=== PATIENT | female | born 1980 | race Caucasian/White ===

== ENCOUNTER 2017-04-09 17:16 | Emergency (ER) | payer SELFPAY ==
[~2017-04-09] VITALS: Ht 157.5 cm; Wt 83.8 kg
[2017-04-09 18:44] LABS: HEMATOCRIT 38.9 % (34.6-47.8); HEMOGLOBIN 13.2 g/dL (11.7-16.4)
[2017-04-09 19:03] LABS: ASPARTATE AMINO TRANSFERASE 13 U/L (15-37); BLOOD UREA NITROGEN 7 mg/dL (7-18)
[2017-04-09 19:51] VITALS: BP 127/80
== END 2017-04-09 20:06 | disposition home or self-care (01) ==
LOC: ED 19:05
DX: K59.00 Constipation, unspecified (principal); G89.29 Other chronic pain; R19.7 Diarrhea, unspecified; Z87.891 Personal history of nicotine dependence
CPT/HCPCS: 36415; 74020; 80053; 81003; 83690; 84703; 85025; 99285

== ENCOUNTER 2018-07-14 16:16 | Emergency (ER) | payer SELFPAY ==
[~2018-07-14] VITALS: Ht 157.5 cm; Wt 77.1 kg
[2018-07-14 16:43] LABS: BASOPHILS # (AUTO) 0.05 x10^3/uL (0-0.1); BASOPHILS % (AUTO) 1 % (0-1); EOSINOPHILS # (AUTO) 0.07 x10^3/uL (0-0.4); EOSINOPHILS % (AUTO) 1 % (1-7); LYMPHOCYTES # (AUTO) 2.33 x10^3/uL (1-3.4); LYMPHOCYTES % (AUTO) 30 % (22-44); MD NO; MEAN CORPUSCULAR HEMOGLOBIN 29.7 pg (27.0-34.8); MEAN CORPUSCULAR HGB CONC 34.1 g/dL (32.4-35.8); MEAN CORPUSCULAR VOLUME 87.2 fL (80-100); MEAN PLATELET VOLUME 7.5 fL (7.4-10.4); MONOCYTES # (AUTO) 0.31 x10^3/uL (0.2-0.8); MONOCYTES % (AUTO) 4 % (2-9); NEUTROPHILS # (AUTO) 5.05 x10^3/uL (1.8-6.8); NEUTROPHILS % (AUTO) 65 % (42-75); PLATELET COUNT 340 x10^3/uL (130-400); RED CELL DISTRIBUTION WIDTH 13.3 % (9.6-15.2)
[2018-07-14 16:56] LABS: ALBUMIN 3.8 g/dL (3.4-5.0); ANION GAP 6 mmol/L (5-15); CALCIUM 9.1 mg/dL (8.5-10.1); CHLORIDE 107 mmol/L (98-107)
[2018-07-14 17:02] LABS: ALKALINE PHOSPHATASE 68 U/L (45-117); BILIRUBIN,TOTAL 0.6 mg/dL (0.2-1.0); CREATININE 0.78 mg/dL (0.55-1.02); TOTAL PROTEIN 7.9 g/dL (6.4-8.2)
[2018-07-14 17:05] LABS: ALANINE AMINOTRANSFERASE 27 U/L (12-78)
[2018-07-14 18:40] VITALS: BP 177/98
--- NOTE | 2018-07-14 18:40 | NUR ---
pt in gown in [facility]. awaiting erp. pt educated on er process and verbalizes understanding. call light is within reach at this time. pt provided ua cup to void when possible.
== END 2018-07-14 19:56 | disposition left against medical advice (07) ==
LOC: ED 19:50
DX: R42 Dizziness and giddiness (principal)
CPT/HCPCS: 36415; 80053; 84703; 85025; 99283